=== PATIENT | female | born 1935 | race Caucasian/White ===

== ENCOUNTER 2016-10-16 01:21 | Inpatient (IN) | payer OTHER, MEDICARE ==
[~2016-10-16] VITALS: Ht 152.4 cm; Wt 76.3 kg
[~2016-10-16 01:21] MED LIST: AMOXICILLIN500 M1 PO; ASPIR 8181 M1 PO; BLADDER CONTROL ADVA PO; CELEBREX200 MG PO; CIPRO500 MG PO; COUMADIN,JANTO2.5 MG PO; DONEPEZIL HCL5 MG PO; Ecotrin PO; FLUOXETINE HCL10 M1 PO; LEVOTHYROXINE137 MCG PO; Levothroid,Synthroid PO; MULTIVITAMIN1 EAC2 PO; PAXIL10 MG PO; SERTRALINE HCL25 MG PO; SYNTHROID112 MCG PO; Senokot S,Pericolace PO; TOVIAZ4 MG PO; TYLENOL REGULA325 MG PO; ULTRAM50 MG PO; [UNRECOGNIZED DRUG - OTHER] PO
[2016-10-16 01:46] LABS: EOSINOPHIL (%) 0 % (0-5); HEMATOCRIT 39.7 % (36.0-46.0); IMMATURE GRANULOCYTE (%) 0.2 % (0.0-0.7); IMMATURE GRANULOCYTE COUNT 0.2 K/uL; LYMPHOCYTE COUNT 1.2 K/uL (1.0-2.8); MCV 87.8 FL (83-99); MEAN PLAT.VOLUME 10.1 uM^3 (9.5-12.4); MONOCYTE (%) 7.8 % (3-12); NEUTROPHIL (%) 83.1 % (45-76); NEUTROPHIL COUNT 10.9 K/uL (1.8-6.4); PLATELET COUNT 202 K/uL (156-360); RBC DIS.WIDTH-CV 13.5 % (11.8-14.6); RED BLOOD COUNT 4.52 M/uL (3.80-5.20); WHITE BLOOD COUNT 13.1 K/uL (4.1-10.2)
[2016-10-16 01:49] LABS: CHLORIDE 109 mEq/L (99-109); POTASSIUM 3.9 mEq/L (3.7-5.4); SODIUM 141 mEq/L (136-147)
[2016-10-16 01:50] LABS: GLUCOSE 131 mg/dL (70-99)
[2016-10-16 01:52] LABS: ANION GAP 10 MEQ/L (2-14)
[2016-10-16 01:53] LABS: INTER. NORMALIZED RATIO 1.1; PROTHROMBIN TIME 11.6 (9.2-11.2); PTT 30.3 (25-32)
[2016-10-16 01:54] LABS: GFR ESTIMATE (CALCULATED) > 59 mL/min/
[2016-10-16 01:55] LABS: UREA NITROGEN (BUN) 15 mg/dL (9-23)
[2016-10-16 02:00] LABS: TROP-I INTERPRETATION NEGATIVE; TROPONIN-I < 0.01 ng/mL (0.0-0.30)
[2016-10-16 03:24] LABS: ADD MIUA? YES; BILIRUBIN NEGATIVE; BLOOD NEGATIVE; COLOR AMBER ((YELLOW)); GLUCOSE (STRIP) NEGATIVE; KETONES 5; LEUKOCYTES NEGATIVE; NITRITE NEGATIVE; PROTEIN (STRIP) 30; UROBILINOGEN 0.2 MG/DL (0.2-1.0)
[2016-10-16 03:39] LABS: BACTERIA NONE SEEN /HPF; EPITHELIAL CELLS RARE /HPF; MUCUS TRACE /LPF; RED BLOOD CELLS 0-5 /HPF (0-5); UCUL ADDED? NO; WHITE BLOOD CELLS 0-5 /HPF (0-5)
[2016-10-16] MEDS ORDERED: DEPAKOTE125 MG PO (07:27)
[2016-10-16] MEDS ORDERED: BUSPAR5 MG PO (07:27)
[2016-10-16] MEDS ORDERED: TYLENOL REGULA325 MG PO (07:29)
[2016-10-16 13:01] VITALS: BP 122/81
[2016-10-16 17:38] VITALS: BP 144/63
[2016-10-16 19:56] VITALS: BP 145/67
[2016-10-16 23:40] VITALS: BP 132/56
[2016-10-17 04:00] VITALS: BP 132/78
[2016-10-17 07:43] VITALS: BP 133/57
[2016-10-17 12:17] VITALS: BP 120/65
[2016-10-17 19:57] VITALS: BP 128/56
[2016-10-17 23:30] VITALS: BP 119/59
[2016-10-18 03:56] VITALS: BP 121/66
[2016-10-18 05:38] LABS: ANION GAP 9 MEQ/L (2-14); CHLORIDE 106 MEQ/L (99-109); GFR ESTIMATE (CALCULATED) > 59 mL/min/; GLUCOSE 125 mg/dL (70-99); POTASSIUM 4.1 MEQ/L (3.7-5.4); SAMPLE HEMOLYSIS CHECK 0; SAMPLE ICTERIC CHECK 0; SAMPLE LIPEMIA CHECK 0; SODIUM 138 MEQ/L (136-147); UREA NITROGEN (BUN) 16 mg/dL (9-23)
[2016-10-18 06:36] LABS: HEMATOCRIT 33.4 % (36.0-46.0); MCH 28.2 PG (29.0-34.0); MCHC 31.4 G/DL (30.0-36.0); MCV 89.5 FL (83-99); MEAN PLAT.VOLUME 9.9 uM^3 (9.5-12.4); PLATELET COUNT 163 K/uL (156-360); RBC DIS.WIDTH-CV 13.5 % (11.8-14.6); RBC DIS.WIDTH-SD 44.2 % (39-53); RED BLOOD COUNT 3.73 M/uL (3.80-5.20)
[2016-10-18 06:38] LABS: WHITE BLOOD COUNT 9.1 K/uL (4.1-10.2)
[2016-10-18 08:10] VITALS: BP 148/67
[2016-10-18 11:51] VITALS: BP 156/69
[2016-10-18 16:30] VITALS: BP 122/57
[2016-10-18 20:34] VITALS: BP 122/58
[2016-10-18 23:19] VITALS: BP 132/62
[2016-10-19 04:59] VITALS: BP 110/54
[2016-10-19 05:58] LABS: HEMATOCRIT 27.7 % (36.0-46.0); MCV 89.1 FL (83-99)
[2016-10-19 08:30] VITALS: BP 148/66
[2016-10-19 11:30] VITALS: BP 136/63
[2016-10-19 15:30] VITALS: BP 145/63
[2016-10-19 20:53] VITALS: BP 158/65
[2016-10-20] VITALS (7 sets, daily range): BP systolic 118–143; BP diastolic 56–72
[2016-10-20 06:11] LABS: EOSINOPHIL COUNT 0.1 K/uL (0-0.3); HEMATOCRIT 27.8 % (36.0-46.0); IMMATURE GRANULOCYTE (%) 0.3 % (0.0-0.7); MCH 28.4 PG (29.0-34.0); MCHC 32.4 G/DL (30.0-36.0); MCV 87.7 FL (83-99); MEAN PLAT.VOLUME 9.8 uM^3 (9.5-12.4); MONOCYTE (%) 11.4 % (3-12); MONOCYTE COUNT 0.9 K/uL (0-0.8); NEUTROPHIL (%) 61.2 % (45-76); NEUTROPHIL COUNT 4.8 K/uL (1.8-6.4); PLATELET COUNT 198 K/uL (156-360); RBC DIS.WIDTH-CV 13.6 % (11.8-14.6); RBC DIS.WIDTH-SD 44.1 % (39-53); RED BLOOD COUNT 3.17 M/uL (3.80-5.20); WHITE BLOOD COUNT 7.8 K/uL (4.1-10.2)
[2016-10-20 06:30] LABS: ANION GAP 7 MEQ/L (2-14); CHLORIDE 107 MEQ/L (99-109); GFR ESTIMATE (CALCULATED) > 59 mL/min/; POTASSIUM 3.5 MEQ/L (3.7-5.4); SAMPLE HEMOLYSIS CHECK 0; SAMPLE ICTERIC CHECK 0; SAMPLE LIPEMIA CHECK 0; SODIUM 138 MEQ/L (136-147); UREA NITROGEN (BUN) 10 mg/dL (9-23)
[2016-10-20 06:32] LABS: GLUCOSE 93 mg/dL (70-99)
[2016-10-21] MEDS ORDERED: LOVENOX40 MG/0.4 SC (07:48)
[2016-10-21] MEDS ORDERED: FERROUS SULFAT325 MG PO (07:48)
[2016-10-21] MEDS ORDERED: ENDOCET 5-3251 EACH PO (07:48)
[2016-10-21 08:22] VITALS: BP 145/77
== END 2016-10-21 15:35 | DRG 481 ==
LOC: EME → EDBD 01:21 → EDOF 02:30 → 3EAST 02:30
PROVIDERS: Emergency Medicine; Internal Medicine; Orthopaedic Surgery
PROC: 0QS636Z Reposition Right Upper Femur with Intramedullary Internal Fixation Device, Percutaneous Approach (ICD-10-PCS; principal; 2016-10-17)
DX: S72.141A Displaced intertrochanteric fracture of right femur, initial encounter for closed fracture (principal); D62 Acute posthemorrhagic anemia; W01.0XXA Fall on same level from slipping, tripping and stumbling without subsequent striking against object, initial encounter; G30.9 Alzheimer's disease, unspecified; F02.80 Dementia in other diseases classified elsewhere, unspecified severity, without behavioral disturbance, psychotic disturbance, mood disturbance, and anxiety; E03.9 Hypothyroidism, unspecified; Z96.651 Presence of right artificial knee joint; Y92.002 Bathroom of unspecified non-institutional (private) residence as the place of occurrence of the external cause; Z88.0 Allergy status to penicillin; Z88.5 Allergy status to narcotic agent; Z86.73 Personal history of transient ischemic attack (TIA), and cerebral infarction without residual deficits
CPT/HCPCS: 70450; 71010; 73501; 73502; 76000; 80048; 81003; 84484; 85014; 85018; 85025; 85027; 85610; 85730; 86850; 86900; 86901; 93005; 94799; 99281; 99285; C1713; J0330; J1100; J1650; J2270; J2405; J3010; J7030